=== PATIENT | female | born 1975 | race Caucasian/White ===

== ENCOUNTER 2017-04-11 08:26 | Observation (INO) | payer BC ==
[~2017-04-11] VITALS: Ht 172.7 cm; Wt 63.0 kg
[2017-04-11] MEDS ORDERED: MOTRIN-DPS800 MG PO (21:25)
[2017-04-11] MEDS ORDERED: METHERGINE0.2 MG PO (21:25)
--- NOTE | 2017-04-20 18:05 | ER ---
ADMIT: 04/11/2017 RM/LOC: 633 [facility] MR#: [id number] [address] [place] [id number] BHARATIMERONWENDI [address] [place] [address] Emergency Room Report SEX: F AGE: 41 : 1975 DATE: 04/11/2017 ADDENDUM: CHIEF COMPLAINT: Vaginal bleeding. HISTORY OF PRESENT ILLNESS: This is a 41-year-old female, who just started having some cramping within the last couple days. Then, started having large amounts of bleeding this morning. When coming in, she rates her pain at 3/10. PAST MEDICAL HISTORY: She has had a knee and skull surgery. Otherwise, negative. SOCIAL HISTORY: Denies any tobacco or drug use, but does drink alcohol occasionally. FAMILY HISTORY: Noncontributory. REVIEW OF SYSTEMS: CONSTITUTIONAL: Denies any fevers, chills, or sweats, but does feel slightly lightheaded from all the bleeding. GI and : Denies any nausea, vomiting, or diarrhea. Just has abdominal cramping. All systems otherwise negative. PHYSICAL EXAMINATION: VITAL SIGNS: Blood pressure is 117/65, pulse is 90, respirations are 16; temperature is 98, tympanic; and saturation of oxygen is 99% on room air. GENERAL APPEARANCE: She is in mild distress, but alert. HEENT: Pharynx is moist. No tonsillar swelling or exudate. HEART: Regular rate and rhythm. LUNGS: CTA bilateral. ABDOMEN: Soft, tender in the suprapubic area. GENITOURINARY: On pelvic exam, she does have severe active bleeding with ADMIT: 04/11/2017 RM/LOC: 633 [facility] MR#: [id number] [place] [id number] WENDI PINK [address] [place] [address] Emergency Room Report SEX: F AGE: 41 : 1975 blood and clots in the vaginal canal. The cervix is open, but not able to visualize any tissue at this time. SKIN: Normal color, warm, and dry. No rashes noted. EXTREMITIES: No pedal edema. NEURO/PSYCH: She is alert and oriented x3. Mood and affect normal. COURSE IN THE EMERGENCY ROOM: I did do a CBC, quant, Rh, and ultrasound; ultrasound still shows some intrauterine gestational sac. CBC is normal except for hemoglobin of 11.9. She has A positive blood. Her beta HCG is 9121. CLINICAL IMPRESSION: in progress. JOHNY Rincon / Domenic Villareal MD / meron JOB #: [id number] CC: Jackie Lopez MD, Attending Physician Jackie Lopez MD, Family Physician
--- NOTE | 2017-05-20 07:37 | HP ---
ADMIT: 04/11/2017 RM/LOC: 633 [facility] MR#: [id number] [address] [id number] BRAYAN PINKKATHY Floyd [address] [place] [address] History and Physical SEX: F AGE: 41 : 1975 DATE OF SERVICE: REASON FOR ADMISSION: Incomplete . HISTORY OF PRESENT ILLNESS: The patient is a 41-year-old, 3, para 2-0- 0-2, who had been diagnosed in the clinic one week prior with missed . At that point, the patient had elected to proceed with expectant management of the missed . She stated that she had very minimal bleeding until the morning of 04/12/2017, where she awoke with very strong cramping and started bleeding very heavily. She stated that she passed very large blood clots and was soaking through pads and therefore presented to the emergency room. The patient denied feeling lightheaded or dizzy. On admission to the emergency room, the patient was noted to have significant bleeding. The patient's hemoglobin was noted to be 11.9. An ultrasound was performed, which showed small gestational sac in the lower uterine segment. The patient wished to avoid surgery after discussing treatment options, so decision was made to proceed with medical management. PAST MEDICAL HISTORY: Noncontributory. PAST SURGICAL HISTORY: Include knee surgery. CURRENT MEDICATIONS: None. ALLERGIES: NO KNOWN MEDICAL ALLERGIES. SOCIAL HISTORY: The patient is . She denies any tobacco, drug, or alcohol use. REVIEW OF SYSTEMS: GENERAL: The patient is feeling unwell. She denies any unexpected weight changes or fever or chills. CARDIOVASCULAR: No chest pain, palpitations, or dyspnea with exertion. RESPIRATORY: No cough, wheeze, or shortness of breath. GASTROINTESTINAL: No nausea, vomiting, diarrhea, or constipation. FEMALE GENITOURINARY: Positive for pelvic pain and bleeding as noted above. MUSCULOSKELETAL: No joint pain or muscle weakness. PHYSICAL EXAMINATION: VITAL SIGNS: On admission, blood pressure 117/79, pulse 90, respirations 16, and temperature 98.0. GENERAL: The patient is alert and oriented, in no acute distress. HEART: Regular rate and rhythm without murmurs, gallops, or rubs. LUNGS: Clear to auscultation bilaterally. ABDOMEN: Soft, mildly tender to palpation. EXTREMITIES: No edema. No calf tenderness. Pelvic examination was performed by emergency room provider and a large amount ADMIT: 04/11/2017 RM/LOC: 633 [facility] MR#: [id number] [id number] [id number] WENDI PINK [address] [place] [address] History and Physical SEX: F AGE: 41 : 1975 of blood clots and blood was noted at time of exam LABORATORY DATA: White count 7.9, hemoglobin 11.9, hematocrit 35.0, and platelets 172. Blood type A positive. Beta hCG level 9121. Ultrasound showed a small gestational sac in the lower uterine segment. ASSESSMENT: A 41-year-old, 3, para 2-0-0-2 with incomplete . PLAN: Plan at this time is to manage medically. The patient has been given one dose of Methergine and plan to give one additional dose in 8 hours. We will also give one dose of p.o. Cytotec. We will continue to monitor. The patient is to ensure that her bleeding is reasonable after this medication. Jackie Lopez MD/ meron JOB #: [id number] CC: Jackie Lopez MD, Attending Physician Jackie Lopez MD, Family Physician
== END 2017-04-11 19:00 | disposition home or self-care (01) ==
LOC: ER 08:26 → 6PED 12:10
PROVIDERS: ADMIT Obstetrics & Gynecology
DX: O03.4 Incomplete spontaneous abortion without complication (principal); Z98.890 Other specified postprocedural states; Z91.040 Latex allergy status